=== PATIENT | female | born 1995 | race Caucasian/White ===

== ENCOUNTER 2019-08-16 10:20 | Emergency (ER) | payer BC ==
--- NOTE | 2019-08-16 10:29 | ER Document Report ---
ED Medical Screen (RME) - General Chief Complaint: Vaginal Bleeding Stated Complaint: VAGINAL BLEEDING Time Seen by Provider: 08/16/19 10:27 Mode of Arrival: Ambulatory Information source: Patient Notes: 23-year-old female presented to ED for complaint of vaginal bleeding. She states that she had a sudden large gush of watery red drainage from her vagina and then now it is bleeding like a day 3 of cycle. She states she is 13-1/2 weeks 1 para 0. She states she was diagnosed with a subchorionic bleed in the past but they told her recently that that was improving. She states that her last ultrasound was on 04 August and everything was looking good at that time. She states she did call her [employer] admissions director and they sent her to the emergency room to be evaluated. States she is not having any pain at this time. She states she does not drink smoke or use any illicit drugs during this . I have greeted and performed a rapid initial assessment of this patient. A comprehensive ED assessment and evaluation of the patient, analysis of test results and completion of medical decision making process will be conducted by an additional ED providers. - Related Data Allergies/Adverse Reactions: Penicillins Allergy (Verified 08/16/19 10:24)
[2019-08-16 11:14] LABS: ABSOLUTE LYMPHOCYTES (AUTO) 1.6 10^3/uL (0.5-4.7); ABSOLUTE MONOCYTES (AUTO) 0.5 10^3/uL (0.1-1.4); ABSOLUTE NEUT (AUTO) 5.9 10^3/uL (1.7-8.2); EOSINOPHILS % (AUTO) 0.6 % (0-6); HEMATOCRIT 40.4 % (36.0-47.0); HEMOGLOBIN 14.2 g/dL (12.0-15.5); LYMPHOCYTES % (AUTO) 19.5 % (13-45); MEAN CORPUSCULAR HEMOGLOBIN 30.5 pg (27.0-33.4); MEAN CORPUSCULAR HGB CONC 35.2 g/dL (32.0-36.0); MEAN CORPUSCULAR VOLUME 87 fl (80-97); MONOCYTES % (AUTO) 5.7 % (3-13); PLATELET COUNT 186 10^3/uL (150-450); RED BLOOD COUNT 4.66 10^6/uL (3.72-5.28); RED CELL DISTRIBUTION WIDTH 13.5 % (11.5-14.0); SEGMENTED NEUTROPHILS % (AUTO) 74.2 % (42-78); TOTAL CELLS COUNTED % (AUTO) 100 %
[2019-08-16 11:32] LABS: ALBUMIN 4.1 g/dL (3.5-5.0); ALKALINE PHOSPHATASE 58 U/L (38-126); ANION GAP 5 (5-19); ASPARTATE AMINO TRANSFERASE 20 U/L (14-36); BILIRUBIN,TOTAL 0.4 mg/dL (0.2-1.3); BLOOD UREA NITROGEN 4 mg/dL (7-20); CALCIUM 9.2 mg/dL (8.4-10.2); CARBON DIOXIDE 23 mmol/L (22-30); CHLORIDE 107 mmol/L (98-107); GLUCOSE 87 mg/dL (75-110); POTASSIUM 4.2 mmol/L (3.6-5.0)
[2019-08-16] MEDS ORDERED: NORMAL SALINE 1000 ML 1,000 ML IV ONE (12:13)
--- NOTE | 2019-08-16 12:15 | RADIOLOGY REPORT (SQ) ---
EXAM DESCRIPTION: U/S [id number] TRNABD 1GES W/ODOP IMAGES COMPLETED DATE/TIME: 08/16/2019 11:54 am REASON FOR STUDY: Large gush of blood 15-1/2 weeks COMPARISON: None. TECHNIQUE: Transabdominal static and realtime grayscale images acquired of the pelvis. Additional se lected spectral and color Doppler images recorded. All images stored on PACs. bHCG: None available CLINICAL DATES: Last menses 05/13/2019 (13 weeks 4 days) LIMITATIONS: None. FINDINGS: FETUS: Single Living intrauterine . ULTRASOUND EGA: 13 weeks 5 days ULTRASOUND MICHAEL: 02/16/2020 EFW: Not applicable less than 20 weeks. CRL: 7.7 cm FHR: 150 beats per minute. SURVEY: Too early to assess. AMNIOTIC FLUID: Adequate amount. PLACENTA: Developing anteriorly SUBCHORIONIC BLEED: Yes SIZE OF BLEED: Subchorionic hemorrhage is seen along the uterine fundus, 6 x 2 cm cm in size. There is also a small subchorionic hemorrhage along the lower uterine segment near the internal cervi moise os, a 2.5 by 2 cm in size. UTERUS: The uterus is 15 x 9 x 10 cm in size. Along the dorsal aspect of the lower uterine segment, slightly hypoechoic mass is present without col or flow, likely a small fibroid, 4.6 x 3.5 x 2.8 cm in size. CERVICAL LENGTH: 5 cm in length Closed. RIGHT ADNEXA: Ovary not identified due to poor acoustical window. No adnexal free fluid. No adnexal masses. LEFT ADNEXA: Ovary not identified due to poor acoustical window. No adnexal free fluid. No adnexal masses. FREE FLUID: None. OTHER: No other significant finding. IMPRESSION: LIVING INTRAUTERINE . EGA 13 weeks 5 days, embryo cardiac activity 150 beats per minute Large fundal subchorionic hemorrhage, small lower uterine segment subchorionic hemorrhage Probable 4.6 cm fibroid lower uterine segment dorsally Trimester of : First trimester - 0 to 13 weeks. TECHNICAL DOCUMENTATION: JOB ID: [id number] 2010 [email or web address]- All Rights Reserved rev-06/28 Reading location - IP/workstation name: [email or web address]
[2019-08-16 12:19] LABS: APPEARANCE,URINE CLEAR; BILIRUBIN,URINE NEGATIVE (NEGATIVE); COLOR,URINE STRAW; GLUCOSE, URINE NEGATIVE (NEGATIVE); KETONES,URINE NEGATIVE (NEGATIVE); LEUKOCYTE ESTERASE,URINE NEGATIVE (NEGATIVE); NITRITE,URINE NEGATIVE (NEGATIVE); PROTEIN,URINE NEGATIVE (NEGATIVE); URINE SPECIFIC GRAVITY 1.006; UROBILINOGEN,URINE NEGATIVE mg/dL (<2.0)
[2019-08-16 13:47] VITALS: BP 103/71
[2019-08-16 13:56] LABS: HEMATOCRIT 35.9 % (36.0-47.0); HEMOGLOBIN 12.8 g/dL (12.0-15.5); MEAN CORPUSCULAR HGB CONC 35.7 g/dL (32.0-36.0); MEAN CORPUSCULAR VOLUME 87 fl (80-97); PLATELET COUNT 160 10^3/uL (150-450); RED BLOOD COUNT 4.14 10^6/uL (3.72-5.28); RED CELL DISTRIBUTION WIDTH 13.3 % (11.5-14.0); WHITE BLOOD COUNT 7.9 10^3/uL (4.0-10.5)
--- NOTE | 2019-08-16 14:05 | ER Document Report ---
ED GI/ - General Chief Complaint: OB Problem (<20wks) Stated Complaint: VAGINAL BLEEDING Time Seen by Provider: 08/16/19 10:27 Mode of Arrival: Ambulatory Information source: Patient Notes: Patient is presently 13-1/2 weeks . Patient reports history of subchorionic bleed and vaginal bleeding. Patient states that she became with an IUD in place and had the IUD removed at about 4 5 weeks. Patient states around week 6 during the she developed a subchorionic bleed. Patient reports feeling mildly lightheaded. No urinary symptoms. Patient states today she had a sudden gush of blood and has had heavier bleeding feeling 3 pads thus far today. - HPI Patient complains to provider of: , Vaginal bleeding Onset: This morning Timing/Duration: Sudden Quality of pain: Cramping Pain Level: 1 Context: Location: Pelvis Vaginal bleeding (Compared to normal period): Heavier. denies: Passing clots Associated symptoms: denies: Nausea, Urinary hesitancy, Urinary frequency, Urinary retention, Urinary urgency, Vaginal discharge Exacerbated by: Denies Relieved by: Denies Similar symptoms previously: Yes Recently seen / treated by doctor: Yes - Related Data Allergies/Adverse Reactions: Penicillins Allergy (Verified 08/16/19 10:24) Home Medications: Past Medical History - General Information source: Patient - Social History Smoking Status: Never Smoker Chew tobacco use (# tins/day): No Frequency of alcohol use: None Drug Abuse: None Occupation: [employer] Lives with: Family Family History: Reviewed & Not Pertinent Patient has homicidal ideation: No - Medical History Medical History: Negative Past Surgical History: Reports: Hx Orthopedic Surgery Review of Systems - Review of Systems Constitutional: No symptoms reported. denies: Fever EENT: No symptoms reported Cardiovascular: Lightheaded Respiratory: No symptoms reported. denies: Cough, Short of breath Gastrointestinal: Abdominal pain. denies: Vomiting Genitourinary: No symptoms reported. denies: Dysuria Female Genitourinary: Vaginal bleeding Musculoskeletal: No symptoms reported. denies: Back pain Skin: No symptoms reported Hematologic/Lymphatic: No symptoms reported Neurological/Psychological: No symptoms reported Physical Exam - Vital signs Vitals: Temp 98.8 F 08/16/19 10:24 - General General appearance: Appears well, Alert In distress: None - HEENT Head: Normocephalic, Atraumatic Eyes: Normal Conjunctiva: Normal Nasal: Normal Mouth/Lips: Normal Mucous membranes: Normal Neck: Normal, Supple - Respiratory Respiratory status: No respiratory distress Chest status: Nontender Breath sounds: Normal. No: Rales, Rhonchi, Stridor, Wheezing Chest palpation: Normal - Cardiovascular Rhythm: Tachycardia Heart sounds: S1 appreciated, S2 appreciated - Abdominal Inspection: Normal Distension: No distension Bowel sounds: Normal Tenderness: Tender - lower pelvic - Genitourinary External exam: Normal Speculum exam: Cervix closed Vaginal bleeding: Moderate - Back Back: Normal, Nontender. No: CVA tenderness - Extremities General upper extremity: Normal inspection, Normal strength General lower extremity: Normal inspection, Normal strength - Neurological Neuro grossly intact: Yes Cognition: Normal Sb Coma Scale Eye Opening: Spontaneous Sb Coma Scale Verbal: Oriented Sb Coma Scale Motor: Obeys Commands [place] Coma Scale Total: 15 - Psychological Associated symptoms: Normal affect, Normal mood - Skin Skin Temperature: Warm Skin Moisture: Dry Skin Color: Normal Course - Re-evaluation Re-evalutation: 08/16/19 14:36 Pelvic examination performed, patient with mild vaginal bleeding at this time, no clots and cervical loss is closed. Did speak with patient's on-call [employer] SAL[employer] REPRESENTATIVE Dr. Ma and reviewed case with her. Dr. Ma was unable to access patient's previous ultrasound but recommended follow-up in the office and having patient to be on pelvic rest and to call tomorrow for an appointment. She also recommended formal consultation with our OB at [place]. Call was then placed to Dr. Sotelo and case was discussed. Advised of labs, vital signs as well as ultrasound report findings. Dr. Sotelo advises outpatient follow-up with her OB and good return precautions. No additional tests advised at this time. - Vital Signs Vital signs: Temp Pulse Resp BP Pulse Ox 98.8 F 94 16 103/71 100 08/16/19 10:25 08/16/19 13:47 08/16/19 13:47 08/16/19 13:47 08/16/19 13:47 - Laboratory Result Diagrams: 08/16/19 13:45 08/16/19 10:35 Laboratory results interpreted by me: 08/16/19 08/16/19 08/16/19 10:35 11:55 13:45 Hct 35.9 L Sodium 134.8 L BUN 4 L Beta HCG, Quant 48671.00 H Urine Blood MODERATE H 08/16/19 14:38 Labs- All tests 24 hr 08/16/19 08/16/19 08/16/19 10:35 10:35 10:35 WBC 8.0 RBC 4.66 Hgb 14.2 Hct 40.4 MCV 87 MCH 30.5 MCHC 35.2 RDW 13.5 Plt Count 186 Lymph % (Auto) 19.5 [place] % (Auto) 5.7 Eos % (Auto) 0.6 Baso % (Auto) 0.0 Absolute Neuts (auto) 5.9 Absolute Lymphs (auto) 1.6 Absolute Monos (auto) 0.5 Absolute Eos (auto) 0.0 Absolute Basos (auto) 0.0 Seg Neutrophils % 74.2 Sodium 134.8 L Potassium 4.2 Chloride 107 Carbon Dioxide 23 Anion Gap 5 BUN 4 L Creatinine 0.52 Est GFR ( Amer) > 60 Est GFR (MDRD) Non-Af > 60 Glucose 87 Calcium 9.2 Total Bilirubin 0.4 Direct Bilirubin 0.0 Neonat Total Bilirubin Not Reportable Neonat Direct Bilirubin Not Reportable Neonat Indirect Bili Not Reportable AST 20 ALT 11 Alkaline Phosphatase 58 Total Protein 7.0 Albumin 4.1 Beta HCG, Quant 83047.00 H Total Beta HCG POSITIVE Urine Color Urine Appearance Urine pH Ur Specific [place] Urine Protein Urine Glucose (UA) Urine Ketones Urine Blood Urine Nitrite Urine Bilirubin Urine Urobilinogen Ur Leukocyte Esterase Urine WBC (Auto) Urine RBC (Auto) Squamous Epi Cells Auto Urine Mucus (Auto) Urine Ascorbic Acid Blood Type O POSITIVE Rhogam Indicated RHOGAM NOT INDICATED 08/16/19 08/16/19 11:55 13:45 WBC 7.9 RBC 4.14 Hgb 12.8 Hct 35.9 L MCV 87 MCH 31.0 MCHC 35.7 RDW 13.3 Plt Count 160 Lymph % (Auto) [place] % (Auto) Eos % (Auto) Baso % (Auto) Absolute Neuts (auto) Absolute Lymphs (auto) Absolute Monos (auto) Absolute Eos (auto) Absolute Basos (auto) Seg Neutrophils % Sodium Potassium Chloride Carbon Dioxide Anion Gap BUN Creatinine Est GFR ( Amer) Est GFR (MDRD) Non-Af Glucose Calcium Total Bilirubin Direct Bilirubin Neonat Total Bilirubin Neonat Direct Bilirubin Neonat Indirect Bili AST ALT Alkaline Phosphatase Total Protein Albumin Beta HCG, Quant Total Beta HCG Urine Color STRAW Urine Appearance CLEAR Urine pH 8.0 Ur Specific [place] 1.006 Urine Protein NEGATIVE Urine Glucose (UA) NEGATIVE Urine Ketones NEGATIVE Urine Blood MODERATE H Urine Nitrite NEGATIVE Urine Bilirubin NEGATIVE Urine Urobilinogen NEGATIVE Ur Leukocyte Esterase NEGATIVE Urine WBC (Auto) 0 Urine RBC (Auto) 27 Squamous Epi Cells Auto 1 Urine Mucus (Auto) RARE Urine Ascorbic Acid NEGATIVE Blood Type Rhogam Indicated - Diagnostic Test Radiology reviewed: Reports reviewed Discharge - Discharge Clinical Impression: Vaginal bleeding affecting early Subchorionic bleed Qualifiers: Fetus number: single or unspecified fetus Trimester: second trimester Qualified Code(s): O41.8X20 - Other specified disorders of amniotic fluid and membranes, second trimester, not applicable or unspecified Condition: Stable Disposition: HOME, SELF-CARE Instructions: Bleeding During Early ([facility]) Additional Instructions: Return immediately for any new or worsening symptoms Followup with your [employer] REPRESENTATIVE provider, call tomorrow to make a followup appointment Pelvic rest, no tampons or sexual intercourse until cleared by your OB Forms: Return to Work
[2019-08-16] MEDS ORDERED: KETOROLAC TROMETHAMINE INJ/PF 30 MG/1 ML SDV IV ONE (14:38)
== END 2019-08-16 15:22 | disposition home or self-care (01) ==
LOC: ER 10:20
DX: O20.8 Other hemorrhage in early pregnancy (principal); O26.892 Other specified pregnancy related conditions, second trimester; R10.2 Pelvic and perineal pain; R42 Dizziness and giddiness; R00.0 Tachycardia, unspecified; Z3A.00 Weeks of gestation of pregnancy not specified; Z79.899 Other long term (current) drug therapy
CPT/HCPCS: 99284; 96361; 96374; 86900; 86901; 36415; 84702; 85025; 80053; 81001; 76801; J1885; J7030